=== PATIENT | female | born 1995 | race Caucasian/White ===

== ENCOUNTER 2021-11-26 08:58 | Emergency (ER) | payer BC, MEDICAID ==
[~2021-11-26] VITALS: Ht 165.1 cm; Wt 54.4 kg
[2021-11-26 09:05] VITALS: BP_SYST 108
--- NOTE | 2021-11-26 09:48 | NUR ---
Placed in room 5 . Placed on threat monitoring analyst, blood pressure machine and pulse oximeter. To gown for exam. Side rails up. Report given to JENNIFER MARVIN.
--- NOTE | 2021-11-26 10:32 | NUR ---
ER DR. CORMIER AT THE BEDSIDE EXAMINING PT
[2021-11-26] MEDS ORDERED: MAG HYDROX/AL HYDROX/SIMETH 30 ML, DICYCLOMINE HCL 20 MG, LIDOCAINE VISCOUS 2% 15ML (PO... PO ONE ×3 (11:00)
[2021-11-26 11:35] LABS: BASOPHILS % (AUTO) 0.4 % (0.0-2.0); EOSINOPHILS % (AUTO) 0.5 % (0.0-4.0); HEMATOCRIT 43.9 % (36-48); LYMPHOCYTES # (AUTO) 1.9 K/uL (1.0-5.5); MEAN CORPUSCULAR HEMOGLOBIN 30 pg (27-31); MEAN CORPUSCULAR HGB CONC 34 % (32-36); MEAN CORPUSCULAR VOLUME 87 fL (79.0-98.0); MONOCYTES # (AUTO) 0.4 K/uL (0.0-1.0); MONOCYTES % (AUTO) 4.8 % (1.7-9.3); NEUTROPHILS # (AUTO) 6.2 K/uL (1.8-7.7); NEUTROPHILS % (AUTO) 72.3 % (40.0-70.0); PLATELET COUNT (AUTO) 237 K/uL (130-430); RED BLOOD CELL COUNT(AUTO) 5.02 MIL/uL (4.2-6.2); RED CELL DISTRIBUTION WIDTH 12.6 % (9.0-15.0); WHITE BLOOD COUNT (AUTO) 8.6 K/uL (4.8-10.8)
[2021-11-26 11:47] LABS: CALCIUM 9.4 mg/dL (8.4-11.0); CREATININE 0.42 mg/dL (0.55-1.30); POTASSIUM 4.6 mmol/L (3.5-5.1)
[2021-11-26 11:54] LABS: ALBUMIN 4.3 g/dL (3.4-4.8); TOTAL BILIRUBIN 0.6 mg/dL (0.0-1.0)
--- NOTE | 2021-11-26 12:14 | NUR ---
reassess patient 26 years old female c/o abdominal pain with dark stool, no diarrhea, constipation, stated feels better after GI coktail.no active rectal bleeding.
[2021-11-26 12:19] LABS: BILIRUBIN,URINE NEGATIVE (NEGATIVE); CLARITY/URINE CLEAR (CLEAR); COLOR,URINE YELLOW (YELLOW); GLUCOSE,URINE NEGATIVE (NEGATIVE); KETONES,URINE NEGATIVE (NEGATIVE); LEUKOCYTE ESTERASE ,URINE NEGATIVE (NEGATIVE); NITRITE, URINE NEGATIVE (NEGATIVE); PROTEIN URINE NEGATIVE (NEGATIVE); UROBILINOGEN,URINE 0.2 (0.2-1.0)
[2021-11-26 12:28] LABS: BLOOD, URINE TRACE (NEGATIVE)
[2021-11-26 13:20] LABS: BACTERIA,URINE RARE /HPF (None Seen); MUCUS,URINE 1+ /LPF (None Seen); RBC,URINE 0-3 /HPF (0-3); WBC,URINE 0-3 /HPF (0-3)
[2021-11-26] MEDS ORDERED: ANT30 PO (13:44)
[2021-11-26] MEDS ORDERED: OMEP-268 PO (13:44)
[2021-11-26] MEDS ORDERED: IMO2 PO (13:44)
[2021-11-26] MEDS ORDERED: DICY10CA13 PO (13:44)
[2021-11-26 13:56] VITALS: BP_SYST 112
--- NOTE | 2021-11-26 14:02 | NUR ---
patient condition stable d/c home with instructions after care reviewed understood left er alert, oriented x4 no abdominal pain nausea vomiting, no rectal bleeding.
== END 2021-11-26 13:56 | disposition home or self-care (01) ==
LOC: SED 08:58
DX: K29.71 Gastritis, unspecified, with bleeding (principal)
CPT/HCPCS: 36415; 80053; 81000; 83690; 85025; 86886; 86900; 86901; 99283; J2001